=== PATIENT | female | born 1985 ===

== ENCOUNTER 2024-05-23 17:37 | Inpatient (IN) | payer OTHER, SELFPAY ==
[2024-05-23] VITALS (33 sets, daily range): BP systolic 103–141; BP diastolic 64–129; BMI 25.9
--- NOTE | 2024-05-23 12:48 | ED.GENMED ---
History of Present Illness
General
Chief Complaint: Vaginal Bleeding
Source: patient
Exam Limitations: none
Time Seen by Provider: 05/23/24 12:40
Nursing documentation reviewed up to this point in time: agreed with
History of Present Illness
History of Present Illness:
39-year-old female presents emergency department due to vaginal bleeding began earlier today. She denies taking blood thinners. She was recently hospitalized at [facility], had multiple transfusions. She was scheduled to have a
hysterectomy, but she had to leave the hospital for a court date.
Past History
Past History
ED Past Medical History: None
ED Past Surgical History: None
Social History
Tobacco: Non-smoker
Alcohol: None
Drug: None
Review of Systems
Review of Systems
Allergies reviewed?: Yes
All Other Systems: Not applicable
Constitutional: Reports fatigue
EENT: Reports no symptoms
Respiratory: Reports no symptoms
Cardiac: Reports no symptoms
ABD/GI: Reports no symptoms
: Reports bleeding
Musculoskeletal: Reports no symptoms
Skin: Reports no symptoms
Neurological: Reports no symptoms
Endocrine: Reports no symptoms
Hematologic/Lymphatic: Reports no symptoms
Psychiatric: Reports no symptoms
Phy Exam
Physical Exam
Physical Exam:
Physical Exam
General: Appears uncomfortable, afebrile
Neck: supple. no meningeal signs. normal posterior pharynx
Heart: s1/s2 regular rate and rhythm, no murmur. equal radial
pulses.
HEENT: Pupils equal round reactive to light, EOMI
Lungs: no acute respiratory distress. clear bilaterally
Abdomen: normal bowel sounds. not tender. no CVAT
Neuro: alert and oriented. no focal neurological deficits cranial nerves II through XII intact
Skin: no rash
Psychiatric: well kept. interactive and cooperative
Extremities: no edema. no calf tenderness. negative homans. good distal pulses
Genitourinary Exam Female
Exam Female: no adnexal tenderness, no CMT, no lesions, no mass and vaginal bleeding
Vaginal Exam: blood
Vaginal Bleeding: clots and moderate
Visual exam of cervix: os closed
Uterus: normal size
Course
Orders/Labs/Results
Orders:
Orders
05/23/24 12:37
Cardiac Monitoring- Treatment ONCE
Test Result ONCE
05/23/24 12:38
Electrocardiogram (*1) Urgent
Reason for Study: Fatigue / Weakness
EKG- Treatment ONCE
05/23/24 13:02
US Pelvis Transvaginal Only Urgent
Comment:
Reason For Exam: vaginal bleeding
05/23/24 13:03
Lactated Ringers [Lr] 1,000 ml IV BOLUS
05/23/24 13:09
Complete Blood Count/With Diff Urgent
PTT Urgent
Prothrombin Time Urgent
05/23/24 13:27
Comprehensive Metabolic Panel Urgent
HCG, Serum Qualitative Screen Urgent
05/23/24 13:38
ABO2 Urgent
Wearable Security Wristband Number:
Associate notified that ABO2 has been ordered: [id number]
Date: 05/23/24
Time: 13:34
Automobile Spring Repairer ID: [id number]
05/23/24 14:43
Type+Screen Routine
Screamin Daily DealsK Wristband Number:
05/23/24 16:04
Ketorolac [Toradol] 15 mg .ROUTE .STK-MED ONE
05/23/24 16:05
Ketorolac [Toradol] 15 mg IV NOW STA
05/23/24 16:08
MR Pelvis W/o & With Contrast Urgent
Comment:
Reason For Exam: vaginal bleeding, fibroids
OK for patient to be off Cardiac Monitoring for MRI: Yes
Recent pill cam endoscopy?: No
05/23/24 16:43
Admit Patient As Directed
Co-Sign Provider:
Level of Care: Inpatient admission
Assign to:: Medical/Surgical
Physician / Group: [place] BUCKSHOT SWAGE OPERATOR
Diagnosis: Menorrhagia - anemia
Patient Condition: Good
Reason for Hospitalization: Blood transfusion and surgery
Expected length of stay greater than two midnights?: No
ELOS- Estimated Length of Stay in days: 2
I certify the patient meets the requirements for IP care: Yes
Reason for Overnight Stay: Bleeding/Bleeding Risk
PRN Pain Medication Management As Directed
May give lesser potent ordered pain med per pt: Yes
preference::
Protocol:: Medication orders for pain may be administered in a
manner that supports deferring to patient preference
when the pt is:
- Requesting an ordered lesser potent pain medication.
Least to most potent pain medications are defined
as: acetaminophen < NSAID < tramadol < opioids
(morphine, oxycodone, hydromorphone).
- Requesting a lesser dose of the same medication IF
ORDERED.
- Requesting a less intrusive route of administration
if both routes are prescribed by the provider (PO <
IV).
05/23/24 16:45
Activity As Directed
Activity Level: Bathroom Privileges
Pneumatic Compression Sleeves As Directed
Type: Thigh high
DX Deep Vein Thrombosis Video Routine
05/23/24 17:00
Dextrose 5%/0.9%Sodchl 1000 ml [D5/0.9% Sodium Chloride] 1,000 ml IV 125 mls/hr
05/23/24 17:53
H&H Stat
05/24/24 01:00
H&H Q8H
05/24/24 06:00
Complete Blood Count/No Diff IN AM
Abnormal Lab Results
05/23/24 05/23/2425
13:09 13:27 14:43
RBC 3.01 L 10^6/uL
(4.20-5.40)
Hgb 8.3 L g/dL
(12.0-16.0)
Hct 26.1 L %
(37.0-47.0)
MCHC 31.8 L g/dL
(33.0-37.0)
RDW 15.6 H %
(11.5-14.5)
BUN 18 H mg/dl
(7-17)
Creatinine 0.5 L mg/dL
(0.6-1.0)
Calcium 10.4 H mg/dl
(8.4-10.2)
Crossmatch IS Only See Detail
05/23/24 17:00
05/23/24 13:27
Vital Signs
Initial and Last Documented VS:
Initial Vital Signs
Temp Pulse BP Pulse Ox
98.6 F 89 119/90 100
05/23/24 12:31 05/23/24 12:31 05/23/24 12:31 05/23/24 12:31
Last Documented Vital Signs
Temp Pulse Resp BP Pulse Ox
98.6 F 85 21 113/82 100
05/23/24 12:31 05/23/24 19:30 05/23/24 19:30 05/23/24 19:30 05/23/24 12:31
MDM/Problems Addressed
Differential Diagnosis Includes:
Menorrhagia, hemorrhagic shock
MDM/Problems Addressed:
39-year-old female with vaginal bleeding, blood pressure and heart rate stable. Copious bleeding noted on exam.
Tigertext sent to Dr. Bautista at 1312 asking to see patient.
*Radiology
Radiology exam reviewed: radiology read reviewed (MRI shows severe enhancing masslike thickening of cervix suspicious for neoplasm, left uterine body calcified intramural fibroid, ultrasound shows left-sided fibroid with peripheral calcification,
normal ovaries)
*Pulse Oximetry
Patient hypoxic: no
*EKG
Interpreted by ED Provider?: NA
*Waiter/Waitress Informal Interpretation
Rate: normal
Interpretation: normal
Heart Rate: 85
Rhythm: sinus
*Critical Care Note
Total Time (30-74mins, 75-104mins- exclusive of procedures): 45
comment:
Critical care statement: A total of 45 minutes of critical care time was provided for this patient. This includes management of unstable vital signs, evaluation of the patient at bedside, reviewing the patient's pertinent medical records, discussion
with consultants, review of old EKGs and review of pertinent medical records. This time with separate from time utilized to perform the aforementioned documented procedures
Data Reviewed
Review of Other/Old Records Reveals: Records (Records reviewed from [facility] where patient had blood transfusion)
Source: records
Patient Management
Social determinants of health affecting care: Living situation and Strong social support
Discussion with other providers: Conservation Science Teacher (BUCKSHOT SWAGE OPERATOR, Dr. Bautista)
Escalation/DeEscalation of care consider admission/obs:
Admit indicated to OR
ED Attending Note
-
Portions of this chart may have been created with voice recognition software.� Occasional wrong word or��sound alike� substitutions may have occurred due to the inherent limitations of voice recognition software.
Discharge Plan
Departure
Patient Disposition: Admit
Date of Disposition: 05/23/24
Time of Disposition: 16:08
Admit to: OR
Presentation/result/management discussed w/ accepting MD/DO: Hospitalist
Patient with high blood pressure during this ER visit?: Yes
Condition: Fair
Discharge Problem:
Abnormal vaginal bleeding, Fibroid uterus
Interventions
Interventions:
*Risk Screen - Suicide Last Done: 05/23/24 12:31
*Neglect/Abuse Screening Last Done: 05/23/24 12:31
*ED- Fall Risk Assessment Last Done: 05/23/24 12:31
*ED COVID-19 Vaccine History Last Done: 05/23/24 12:31
*Nursing Disposition Last Done: 05/23/24 19:26
ED-Female Genitourinary Assessment Last Done: 05/23/24 13:37
Discharge Date and Time
Discharge Date/Time: 05/23/24 19:29
[2024-05-23] MEDS: LR 1000 IV (13:15)
[2024-05-23 13:23] LABS: % Basophils 0.5 % (0-2); % Eosinophils 0.7 % (0-6); % Immature Granulocytes 0.2 % (0-0.5); % Lymphocytes 32.3 % (20.5-51.1); % Monocytes 5.7 % (1.7-9.3); % Neutrophils 60.6 % (42.2-75.2); Absolute Eosinophils 0.1 10^3/uL (0-0.7); Absolute Lymphocytes 2.7 10^3/uL (1.2-3.4); Absolute Monocytes 0.5 10^3/uL (0.1-0.6); Hematocrit 26.1 % (37.0-47.0); Hemoglobin 8.3 g/dL (12.0-16.0); Mean Corp Hgb Conc. 31.8 g/dL (33.0-37.0); Mean Corpuscular Hgb 27.6 pg (27.0-31.0); Mean Corpuscular Volume 86.7 fL (81.0-99.0); Mean Platelet Volume 8.6 fL (7.4-10.4); Nucleated Red Blood Cells % 0 %; Platelet Count 355 10^3/uL (130-400); Red Blood Cell Count 3.01 10^6/uL (4.20-5.40); Red Cell Dist. Width 15.6 % (11.5-14.5); White Blood Cell Count 8.3 10^3/uL (4.8-10.8)
[2024-05-23 13:32] LABS: INR 1.04; PT 13.9 Sec (11.4-14.6)
[2024-05-23 13:33] LABS: APTT 31.3 Sec (23.4-35.0)
[2024-05-23 13:47] LABS: HCG, Serum Qualitative Screen Negative
[2024-05-23 13:51] LABS: ALT (SGPT) 26 U/L (0-35); AST (SGOT) 24 U/L (14-36); Albumin 3.8 g/dl (3.5-5.0); Alkaline Phosphatase 84 U/L (38-126); Blood Urea Nitrogen 18 mg/dl (7-17); Calcium 10.4 mg/dl (8.4-10.2); Carbon Dioxide 24 mmol/L (22-30); Chloride 107 mmol/L (98-107); Estimated Creatinine Clearance 114 ml/min; Glucose 93 mg/dl (70-99); Potassium 4.5 mmol/L (3.5-5.1); Sodium 138 mmol/L (135-145); Total Bilirubin 0.9 mg/dl (0.2-1.3); Total Protein 7.1 g/dl (6.3-8.2); eGFR > 60.00
[2024-05-23] MEDS: TORADOL 15 MG IV (16:05)
[2024-05-23] MEDS: D5/0.9% SODIUM CHLORIDE 1000 IV (17:53)
[2024-05-23 18:00] LABS: Hematocrit 22.8 % (37.0-47.0); Hemoglobin 7.2 g/dL (12.0-16.0)
--- NOTE | 2024-05-23 19:41 | SUR.PHASEI ---
patient into pacu PRE-OP - holding for OR availability; placed on monitor, vss, first unit of packed cells infusing. warn blankets on.
--- NOTE | 2024-05-23 19:55 | SUR.PHASEI ---
care transferred to OR team, patient to OR with packed cells infusing.
[2024-05-23] MEDS: ANCEF 10 IV (20:17)
[2024-05-23] MEDS: MOTRIN 600 MG PO (22:55)
[2024-05-23] MEDS: NORMOSOL-R/PLASMALYTE-A 1000 IV (22:55)
[2024-05-24] VITALS: BP 121/84
[2024-05-24 01:00] VITALS: BP 113/74
[2024-05-24 02:00] LABS: Hematocrit 28.3 % (37.0-47.0); Hemoglobin 9.7 g/dL (12.0-16.0)
[2024-05-24 03:10] VITALS: BP 116/72
[2024-05-24] MEDS: NORMOSOL-R/PLASMALYTE-A 1000 IV (05:49)
[2024-05-24 06:00] VITALS: BMI 24.4
[2024-05-24 06:41] LABS: Hematocrit 27.2 % (37.0-47.0); Hemoglobin 9.2 g/dL (12.0-16.0); Mean Corp Hgb Conc. 33.8 g/dL (33.0-37.0); Mean Corpuscular Hgb 29.1 pg (27.0-31.0); Mean Corpuscular Volume 86.1 fL (81.0-99.0); Mean Platelet Volume 9.3 fL (7.4-10.4); Platelet Count 341 10^3/uL (130-400); Red Blood Cell Count 3.16 10^6/uL (4.20-5.40); Red Cell Dist. Width 14.6 % (11.5-14.5); White Blood Cell Count 8.4 10^3/uL (4.8-10.8)
[2024-05-24 06:43] LABS: Hematocrit 27.3 % (37.0-47.0); Hemoglobin 9.1 g/dL (12.0-16.0)
[2024-05-24 07:00] VITALS: BP 121/72
--- NOTE | 2024-05-24 07:16 | W.PN.GYN.DG ---
Today's Communication / Plan
-
F/u on am CBC
Obs for few hours to make sure heavy VB does not recur
D/C Zepeda
Ambulate
OK to d/c today if no heavy VB
Disc with pt worry of cervical cancer - seems last pap may have been 13 years ago
Disc if HIV may make risk of Cervical Cancer higher - pt states tested a few months ago and was negative
Pt declines HIV test here at
Disc need for f/u with a ORNAMENTAL IRON ERECTOR Onc if cancer due to different type of hysterectomy done
Pt has my # and I have hers for f/u on bx results
Gave copy of records from [facility] and mri from - copy of H+P here and op note here
Assessment / Plan
-
Assessment:
POD #1 from [facility] with cervical biopsies - worrisome for Cervical Cancer
Plan:
F/u on am CBC
Obs for few hours to make sure heavy VB does not recur
D/C Zepeda
Ambulate
OK to d/c today if no heavy VB
Disc with pt worry of cervical cancer - seems last pap may have been 13 years ago
Disc if HIV may make risk of Cervical Cancer higher - pt states tested a few months ago and was negative
Pt declines HIV test here at
Disc need for f/u with a ORNAMENTAL IRON ERECTOR Onc if cancer due to different type of hysterectomy done
Pt has my # and I have hers for f/u on bx results
Gave copy of records from [facility] and mri from - copy of H+P here and op note here
Subjective / Objective Data
Subjective Data
Pt doing well - no pain - no VB last night - had vag pack in
Objective Data
Vital Signs
Temp Pulse Resp BP Pulse Ox
98.2 F 104 17 116/72 99
05/24/24 03:10 05/24/24 03:10 05/24/24 03:10 05/24/24 03:10 05/24/24 03:10
Intake & Output
05/23/24 05/24/24 05/25/24
06:59 06:59 06:59
Intake Total 1140 / 1140
Output Total 850 / 850
Balance 290 / 290
Intake:
Oral fluids 240 / 240
IV fluids (Total) 900 / 900
Output:
Urine, Zepeda 850 / 850
Physical Exam
-
Cardiac: Regular rate & rhythm
Lungs: Clear: Bilateral
Abdomen: Soft and Nontender
Bowel Sounds: Normal
Extremities: No Calf Tenderness and No Edema
Other Findings:
Vaginal packing removed - scant spotting on packing
Data Reviewed
-
Lab Data
05/24/24 05:33
05/23/24 13:27
--- NOTE | 2024-05-24 07:47 | W.DS.TRANS ---
DC Summary - Roof Assembler
-
Discharge Instructions:
Discharge Diagnosis/Procedures vaginal bleeding - anemia - cervical mass -
worrisome for cervical cancer
Diet No restrictions
Activity No strenuous activity
Additional Activity Nothing in vagina
Driving Restrictions As prior to admission
Bathing Restrictions OK to Shower
Instructions:
Stand-Alone Forms:
Changes to Home Medications: No
Discharge Medications:
Home Medication Changes
Pending Results: Yes
Additional Pending Results:
Cervical bx results - pt has my office # and I have her # to f/u on bx results - she understands she likely needs to f/u with [facility]OMOBILE DEALER Onc for surgery
[2024-05-24] MEDS: HEPARIN 5000 UNITS SC (08:14)
--- NOTE | 2024-05-24 10:31 | PTCARENOTE ---
Pt voided 200 mls of urine at 1030. Pt reports no pain or cramping. Ride is on the way, will discharge patient.
[2024-05-24 11:00] VITALS: BP 122/71
--- NOTE | 2024-05-24 11:57 | CM ---
Patient seen at bedside in [address] [place] [address]. Patient for discharge today. Patient stated that she plans to go home with family transportation and that she does not have any needs. Patient has no PCP and uses either the [facility] or the [facility] in
[facility]. Patient stated she has no home medications to take and understands that she is to return to have further surgery. CM will continue to follow for discharge planning needs.
Plan; home with no needs a this time
--- NOTE | 2024-05-27 19:05 | PN.CDI ---
CDI
- -
CDI:
Physician Documentation Request
Admit Date: 05/23/24 17:37
Dear Doctor Michele
Please review the following and provide your response in the progress notes.
Clinical Indicators:
Patient admitted with Vaginal bleeding and anemia. Hgb 8.3L, 7.2L , blood transfusions performed
Based on the above, could you clarify, in your progress note, which of the following is the most likely type of anemia you are evaluating, monitoring and/or treating?
Acute blood loss anemia
Acute blood loss anemia with baseline chronic anemia (Specify type)
Chronic iron deficiency anemia due to blood loss
Other
Use of terms such as suspected, likely, concern for, or probable (associated with a specific diagnosis that is being evaluated, monitored, or treated as if it exists) are acceptable and can be coded in the inpatient setting, when documented at the
time of discharge.
Thank you,
Lali Demarco
Roll Changer Inpatient
Please use your independent medical judgment in providing your response.
--- NOTE | 2024-05-27 19:55 | W.PN.UPDATE ---
Update Note
Progress Note Update
Acute blood loos anemia requiring transfustion and admission.
== END 2024-05-24 11:11 | disposition home or self-care (01) | DRG 744 ==
LOC: 2 SOUTH 17:37
PROVIDERS: Emergency Medicine; ADMITTING PHYSICIAN Obstetrics & Gynecology Gynecology; EMERGENCY PHYSICIAN Emergency Medicine
PROC: 0UBC7ZX Excision of Cervix, Via Natural or Artificial Opening, Diagnostic (ICD-10-PCS; 2024-05-23)
PROC: 30233N1 Transfusion of Nonautologous Red Blood Cells into Peripheral Vein, Percutaneous Approach (ICD-10-PCS; 2024-05-23)
PROC: 2Y44X5Z Packing of Female Genital Tract using Packing Material (ICD-10-PCS; 2024-05-23)
DX: C53.9 Malignant neoplasm of cervix uteri, unspecified (principal); D62 Acute posthemorrhagic anemia; N92.0 Excessive and frequent menstruation with regular cycle; D25.0 Submucous leiomyoma of uterus
CPT/HCPCS: 88305; 36430; 72197; 76830; 80053; 84703; 85014; 85018; 85025; 85027; 85610; 85730; 86850; 86900; 86901; 86920; 88342; 93005; 96361; 96374; 96375; 99291; 99406; A9575; P9016